=== PATIENT | female | born 1985 | race Caucasian/White ===

== ENCOUNTER 2018-01-22 12:19 | Inpatient (IN) ==
[2018-01-22] MEDS ORDERED: LACTATED RINGERS 1,000 ML IV ONE (12:37)
[2018-01-22] MEDS ORDERED: BUTORPHANOL 2 MG/ML VIAL IV ONE (13:01)
[2018-01-22 13:09] LABS: Basophils % 0.5 % (0.0-0.8); Eosinophils % 0.4 % (0.00-10.9); Hematocrit 31.7 VOL% (35.7-47.0); Hemoglobin 10.4 GM/DL (12.0-16.0); Immature Granulocytes % 0.9 %; Immature Granulocytes Absolute 0.07 #; Lymphocytes # 2.2 10*3/uL (1.4-4.0); Lymphocytes % 28.8 % (21.3-54.2); Mean Corpuscular HGB Conc 32.8 GM/DL (32-36); Mean Corpuscular Hemoglobin 27 PG (27-34); Mean Corpuscular Volume 82.6 FL (87-102); Mean Platelet Volume 10.6 FL (9.6-12.0); Monocytes # 0.4 10*3/uL (0.11-0.8); Monocytes % 5.5 % (1.7-12.7); NRBC # 0.02 10*3/uL; Neutrophils % 63.9 % (38.7-73.9); Platelet Count 377 T/CUMM (130-400); Red Blood Count 3.84 MC/CUMM (3.8-5.5); Red Cell Distribution Width 16.2 % (9.3-17.3); White Blood Count 7.8 T/CUMM (4-12)
[2018-01-22] MEDS: TERBUTALINE 1 MG/1 ML VIAL SUBCUT PRN ×2 (13:12→14:51)
[2018-01-22 13:18] LABS: Apearance,Urine Slightly Hazy (Clear); Bacteria,Urine Occasional /HPF (Few); Bilirubin,Urine Negative (Negative); Blood, Urine Negative (Negative); Glucose,Urine (UA) Negative (Negative); Ketones,Urine 5 mg/dL (Negative); Mucus,Urine Occasional /LPF (Occasional); Nitrite,Urine Negative (Negative); Protein,Urine Negative; RBC,Urine 2 /HPF (0-4); Squamous Epithelial Cell,Urine Occasional /HPF (0-10); Urine Color Yellow (Yellow); Urine Specific Gravity 1.015 (1.001-1.035); WBC,Urine 11 /HPF (0-6)
[2018-01-22 13:31] LABS: Albumin 2.4 G/DL (3.4-5.0); Bilirubin,Total 0.5 MG/DL (0.2-1.0); Calcium 8.3 MG/DL (8.5-10.1); Osmolality,Calculated 273.7 MOS/KG (273-304); Potassium 3.7 MMOL/L (3.5-5.1); Total Protein 6.8 G/DL (6.4-8.3)
[2018-01-22] MEDS ORDERED: LACTATED RINGERS 1,000 ML IV SCH ×2 (14:00→17:00)
[2018-01-22 14:22] LABS: HIV Antigen/Antibody Result Nonreactive (Nonreactive); Hepatitis B Surface Ag Quant 0.44 Index; Hepatitis B Surface Ag Result Negative (Negative)
[2018-01-22 14:32] LABS: Barbiturates Screen,Urine Negative (Negative); Benzodiazepines Screen,Urine Negative (Negative); Cannabinoid Screen,Urine Positive (Negative); Opiate Screen,Urine Negative (Negative); Phencyclidine Screen,Urine Negative (Negative)
[2018-01-22] MEDS ORDERED: CITRIC ACID/SODIUM CITRATE 30 ML UDCUP PO ONE (15:47)
[2018-01-22] MEDS ORDERED: ceFAZolin 2,000 MG in PREMIX 1 EACH IV ONE (15:47)
[2018-01-22] MEDS ORDERED: FAMOTIDINE 20 MG/2 ML VIAL IV ONE (15:47)
[2018-01-22] MEDS ORDERED: OXYTOCIN/LR 20 UNIT/1,000 ML BAG IV ONE ×3 (15:58→16:52)
[2018-01-22] MEDS ORDERED: ePHEDrine 50 MG/ML AMP ONE (16:50)
[2018-01-22] MEDS ORDERED: ONDANSETRON 4 MG/2 ML VIAL ONE (16:50)
[2018-01-22] MEDS ORDERED: MORPHINE 10 MG/10 ML VIAL ONE (16:50)
[2018-01-22] MEDS ORDERED: BUPIVACAINE SPINAL 0.75% 2 ML AMP SPINAL ONE (16:51)
[2018-01-22] MEDS ORDERED: ONDANSETRON 4 MG/2 ML VIAL IV PRN (16:52)
[2018-01-22] MEDS ORDERED: ACETAMINOPHEN 325 MG TABLET PO PRN (16:52)
[2018-01-22] MEDS ORDERED: RHO(D) IMMUNE GLOBULIN 300 MCG SYRINGE IM ONE (16:52)
[2018-01-22 17:55] LABS: Apearance,Urine CLEAR (Clear); Bilirubin,Urine Negative (Negative); Blood, Urine Negative (Negative); Glucose,Urine (UA) Negative (Negative); Ketones,Urine 20 mg/dL (Negative); Mucus,Urine Occasional /LPF (Occasional); Nitrite,Urine Negative (Negative); Protein,Urine Negative; RBC,Urine 2 /HPF (0-4); Squamous Epithelial Cell,Urine Occasional /HPF (0-10); Urine Color Yellow (Yellow); Urine Specific Gravity 1.011 (1.001-1.035); WBC,Urine 8 /HPF (0-6)
[2018-01-22] MEDS ORDERED: HYDROmorphone 2 MG/1 ML VIAL IV PRN (18:55)
[2018-01-22] MEDS ORDERED: hydrOXYzine HCL 25 MG/1 ML VIAL IM PRN (18:55)
[2018-01-22] MEDS ORDERED: diphenhydrAMINE 50 MG/1 ML VIAL IV PRN (18:55)
[2018-01-23 00:54] LABS: Basophils % 0.2 % (0.0-0.8); Eosinophils % 0.3 % (0.00-10.9); Hemoglobin 9.8 GM/DL (12.0-16.0); Immature Granulocytes % 0.8 %; Lymphocytes % 15.1 % (21.3-54.2); Mean Corpuscular HGB Conc 32.7 GM/DL (32-36); Mean Corpuscular Hemoglobin 27 PG (27-34); Mean Corpuscular Volume 83.1 FL (87-102); Mean Platelet Volume 10.6 FL (9.6-12.0); Monocytes # 0.5 10*3/uL (0.11-0.8); Monocytes % 3.9 % (1.7-12.7); Neutrophils # 10.6 10*3/uL (1.4-7.4); Neutrophils % 79.7 % (38.7-73.9); Platelet Count 348 T/CUMM (130-400); Red Blood Count 3.61 MC/CUMM (3.8-5.5); Red Cell Distribution Width 16.1 % (9.3-17.3); White Blood Count 13.3 T/CUMM (4-12)
[2018-01-23] MEDS: IBUPROFEN 800 MG TABLET PO PRN ×3 (05:56→21:15)
[2018-01-23 06:57] LABS: Basophils # 0.1 10*3/uL (0.0-0.2); Basophils % 0.4 % (0.0-0.8); Eosinophils % 0.2 % (0.00-10.9); Hematocrit 33.5 VOL% (35.7-47.0); Hemoglobin 10.2 GM/DL (12.0-16.0); Immature Granulocytes % 0.4 %; Immature Granulocytes Absolute 0.06 #; Lymphocytes # 1.7 10*3/uL (1.4-4.0); Lymphocytes % 11.8 % (21.3-54.2); Mean Corpuscular HGB Conc 30.4 GM/DL (32-36); Mean Corpuscular Hemoglobin 28 PG (27-34); Mean Corpuscular Volume 90.5 FL (87-102); Mean Platelet Volume 10.9 FL (9.6-12.0); Monocytes # 0.4 10*3/uL (0.11-0.8); Monocytes % 2.7 % (1.7-12.7); Neutrophils % 84.5 % (38.7-73.9); Platelet Count 307 T/CUMM (130-400); Red Cell Distribution Width 16.9 % (9.3-17.3); White Blood Count 14.2 T/CUMM (4-12)
[2018-01-23] MEDS: ceFAZolin 1,000 MG in SYRINGE 1 EACH IV SCH ×2 (07:51)
[2018-01-23] MEDS: MAGNESIUM HYDROXIDE SUSP 30 ML UDCUP PO PRN ×2 (08:28→20:14)
[2018-01-23] MEDS: MULTIVITAMIN (PRENATAL) TABLET PO SCH (08:30)
[2018-01-23] MEDS: DOCUSATE SODIUM 100 MG CAPSULE PO SCH ×3 (08:30→20:14)
[2018-01-23] MEDS ORDERED: BISACODYL 10 MG SUPP RECTAL PRN (19:01)
[2018-01-23] MEDS: SIMETHICONE CHEW 80 MG TABLET PO PRN (20:14)
[2018-01-24] MEDS: IBUPROFEN 800 MG TABLET PO PRN (06:52)
[2018-01-24] MEDS: SIMETHICONE CHEW 80 MG TABLET PO PRN (06:59)
[2018-01-24 07:45] VITALS: BP 108/61
[2018-01-24] MEDS: MULTIVITAMIN (PRENATAL) TABLET PO SCH (08:34)
[2018-01-24] MEDS: DOCUSATE SODIUM 100 MG CAPSULE PO SCH (08:34)
[2018-01-24] MEDS ORDERED: DIPH/TET/ACEL PERT BOOSTER VACCINE 0.5 ML VIAL IM ONE (09:37)
== END 2018-01-24 12:05 | disposition home or self-care (01) | DRG 765 ==
LOC: N.LDOUT 12:19 → N.LD 12:21 → N.OB 20:17
PROVIDERS: ADMIT Obstetrics & Gynecology; ATTEND Obstetrics & Gynecology
PROC: LDCSECT (ICD-10-PCS; 2018-01-22 16:15)